=== PATIENT | male | born 1995 | race Caucasian/White ===

== ENCOUNTER 2021-10-12 13:28 | Emergency (ER) | payer SELFPAY ==
--- NOTE | 2021-10-12 13:35 | ED.URI ---
HPI - URI/Sore Throat General Chief Complaint: Upper Respiratory Infection Stated Complaint: Sinus Pain Time Seen by Provider: 10/12/21 13:52 Source: patient and RN notes reviewed Mode of arrival: ambulatory Limitations: no limitations History of Present Illness HPI Narrative: 25-year-old male presents with concern for sinus pain and pressure. Reports symptoms started on September 30, he had cold symptoms sinus congestion for about a week. Reports he started to feel better and then suddenly felt worse on Tuesday with pain and pressure. Reports left jaw and sinus pain. Reports [id number] medications without relief. MD elicited complaint: sinus pain Related Data Allergies Allergy/AdvReac Type Severity Reaction Status Date / Time Penicillins Allergy Rash Verified 10/12/21 13:43 Review of Systems Review of Systems: CONSTITUTIONAL: Reports malaise. Denies chills, sweats, or fever. EYES: Denies visual changes, redness, or discharge. ENT: Reports rhinorrhea, congestion, sinus pain. Denies otalgia and sore throat. CARDIOVASCULAR: Denies chest pain, palpitations, or edema. RESPIRATORY: Reports occasional cough. Denies dyspnea. GASTROINTESTINAL: Denies abdominal pain, nausea, vomiting, diarrhea SKIN: Denies rash or itching. MUSCULOSKELETAL: Denies myalgia. NEUROLOGIC: Denies headache. All systems reviewed & are unremarkable except as noted in HPI and below PMFSH Comments At time of signature, agree with nursing past medical, surgical, social and family history. There is no relevant family history pertinent to the presenting complaint Exam Narrative: GENERAL: Well-appearing, well-nourished, and in no acute distress. HEAD: Normocephalic EYES: PERRLA, conjunctivae clear ENT: Nares clear, turbinates erythematous, sinus tenderness. Mucous membranes moist. TM pearly whitman with dull light reflex bilaterally; no tragal tenderness. Oropharynx not erythematous without lesions. Tonsils not enlarged and without exudate, no drooling, no hoarseness, no trismus, uvula midline. NECK: Supple. No lymphadenopathy CHEST: Clear to auscultation, breath sounds equal. No wheezing, rhonchi, rales, or stridor. No respiratory distress, speaks in full sentences. HEART: Regular rate and rhythm. No murmur heard. SKIN: Warm, dry, no rash. NEURO: Alert and oriented x3. PSYCH: Normal mood and affect Course Course Emergency Course: Patient is aware of diagnosis, understands and agrees to treatment plan. Anticipatory guidance given. Patient agrees to follow-up as directed and is aware of reasons to seek care at the emergency department. Portions of this record may have been created with voice recognition software Vital Signs Vital signs: Reviewed. MDM - URI/Sore Throat MDM Narrative Medical decision making narrative: Differential diagnosis considered: Platt virus, strep pharyngitis, allergic rhinitis, upper respiratory tract infection, sinusitis, rhinosinusitis, nasopharyngitis. viral pharyngitis, otitis media, otitis externa, pneumonia, bronchitis, viral cough syndrome, viral syndrome, and influenza. Exam findings show no acute concerns or changes; patient is non-toxic appearing and is in no distress. Patient is appropriate for outpatient treatment and follow-up. Critical Care Time Critical Care Time Critical Care Time: No Discharge Plan Discharge Clinical Impression: Acute bacterial sinusitis Patient Disposition: Home, Self-Care Condition: Stable Instructions: Antibiotic Form, Sinusitis (ED) Additional Instructions: Take medications as prescribed Nonprescription pain medications, such as acetaminophen (eg, Tylenol) or ibuprofen (eg, Motrin, Advil), are recommended for pain. Flushing the nose and sinuses with a saline solution several times per day has been proven to decrease pain associated with congestion and shorten the duration of symptoms. Nasal steroids (such as Flonase, 2 sprays in each nostril daily) can help to reduce swelling
[2021-10-12 13:36] VITALS: BP 148/100; PULSE 103; RESP 16; TEMP 37.3; O2SAT 99
== END 2021-10-12 14:02 | disposition home or self-care (01) ==
PROVIDERS: Emergency Provider Nurse Practitioner
DX: J01.90 Acute sinusitis, unspecified (principal)
CPT/HCPCS: 99203; G0463

== ENCOUNTER 2024-10-13 08:11 | Emergency (ER) | payer SELFPAY ==
[2024-10-13 08:21] VITALS: BP 141/78; PULSE 73; RESP 16; TEMP 36.7; O2SAT 100
--- NOTE | 2024-10-13 08:45 | ED_ITS ---
HPI - General Adult General Chief complaint: Upper Respiratory Infection Stated complaint: cold/throat/sinus pain Source: patient Mode of arrival: ambulatory Limitations: no limitations History of Present Illness HPI narrative: Patient presents for evaluation of sick symptoms for last 10 days. He has a mild cough, sinus congestion, thick yellow-green drainage from the nose, and mild sore throat. He did have a fever but that has since resolved. No nausea, vomiting, diarrhea, shortness of breath. He is taking DayQuil for his symptoms. He does not smoke. Related Data Allergies Allergy/AdvReac Type Severity Reaction Status Date / Time Penicillins Allergy Rash Verified 10/12/21 13:43 Review of Systems Review of Systems: CONSTITUTIONAL: Reports recent fever, none currently. Chills, or sweats. EYES: Denies visual changes, redness, or discharge. ENT: Reports sinus congestion, thick yellow/green drainage from the nares, and mild sore throat. Denies otalgia. CARDIOVASCULAR: Denies chest pain, palpitations, or edema. RESPIRATORY: Reports cough. Denies shortness of breath. GASTROINTESTINAL: Denies abdominal pain, nausea, vomiting, or diarrhea. GENITOURINARY: Denies dysuria or hematuria. SKIN: Denies rash or itching. MUSCULOSKELETAL: Denies back pain, joint pain, or myalgia. NEUROLOGIC: Denies headache, numbness, dizziness, or weakness. PSYCHIATRIC: Denies anxiety or depression. [facility] Past Medical History Medical History No pertinent past medical history Surgical History Surgical History No pertinent past surgical history Family History Family History Mother Family history non-contributory Social History Social History Smoking status: Never smoker Substance use: never Living arrangements: with family Gender identity (if verbalized by the patient): Male Sexual Orientation (if Verbalized by the Patient): Straight or Heterosexual Exam Narrative: GENERAL: Well-appearing, well-nourished, and in no acute distress. HEAD: Normocephalic, atraumatic. EYES: PERRLA and EOMI. ENT: Bilateral maxillary sinus tenderness. There is thick yellow/green drainage in the nares. Mucous membranes moist. Oropharynx without tonsillar hypertrophy exudate or other lesions. Bilateral TMs pearly whitman nonbulging NECK: Supple. No adenopathy or masses. No carotid bruits or JVD CHEST: Clear to auscultation. No respiratory distress. No wheezes rales or rhonchi HEART: Regular rate and rhythm. No murmur heard. Normal peripheral pulses. ABDOMEN: Soft, nontender, nondistended, normal active bowel sounds. EXTREMITIES: Normal range of motion. No edema. SKIN: Warm, dry, no rash. NEURO: No focal deficits. Alert and oriented x3. PSYCH: Normal mood and affect. Course Course Emergency Course: This is a 28-year-old male who presented for evaluation of sick symptoms. He meets criteria for bacterial sinusitis based upon duration of time in which she has been symptomatic, thick yellow drainage from the nares, and recent fever. Will discharge with Augmentin. He indicates he can take amoxicillin despite penicillin allergy. Follow-up with primary provider. Go to the ER for worsening symptoms. Patient in agreement with plan of care Level of Care: Express Care Visit Vital Signs Vital signs: Vital Signs Temperature 36.7 C 10/13/24 08:21 Pulse Rate 73 10/13/24 08:21 Respiratory Rate 16 10/13/24 08:21 Blood Pressure 141/78 H 10/13/24 08:21 Pulse Oximetry 100 10/13/24 08:21 Oxygen Delivery Room Air 10/13/24 08:21 Temperature 36.7 C 10/13/24 08:21 Pulse Rate 73 10/13/24 08:21 Respiratory Rate 16 10/13/24 08:21 Blood Pressure 141/78 H 10/13/24 08:21 Pulse Oximetry 100 10/13/24 08:21 Oxygen Delivery Room Air 10/13/24 08:21 Medical Decision Making Vital Signs Vital Signs: Vital Signs Temperature 36.7 C 10/13/24 08:21 Pulse Rate 73 10/13/24 08:21 Respiratory Rate 16 10/13/24 08:21 Blood Pressure 141/78 H 10/13/24 08:21 Pulse Oximetry 100 10/13/24 08:21 Oxygen Delivery Room Air 10/13/24 08:21 Temperature 36.7 C 10/13/24 08:21 Pulse Rate 73 10/13/24 08:21 Respiratory Rate 16 10/13/24 08:21 Blood Pressure 141/78 H 10/13/24 08:21 Pulse Oximetry 100 10/13/24 08:21 Oxygen Delivery Room Air 10/13/24 08:21 Discharge Plan Discharge Clinical Impression: Bacterial sinusitis Patient Disposition: Home, Self-Care Condition: Stable Instructions: Antibiotic Form, Sinusitis (ED) Patient Language: Belarusian Prescriptions: New amoxicillin-pot clavulanate 875-125 mg tablet 1 tablet PO Q12H Qty: 20 0RF Follow-up/Referrals: Harms,Mathieu Cortez M.D. [Primary Care Provider] - Time of Disposition: 08:43
== END 2024-10-13 08:47 | disposition home or self-care (01) ==
PROVIDERS: Emergency Provider Nurse Practitioner; PCP Family Medicine
DX: J32.9 Chronic sinusitis, unspecified (principal)
CPT/HCPCS: 99213; G0463